=== PATIENT | female | born 1990 | race Caucasian/White ===

== ENCOUNTER → 2017-11-06 13:26 | Outpatient (CLI) | payer SELFPAY ==
[2017-11-06 17:00] LABS: Hematocrit 37.8 % (37-47); Hemoglobin 12.4 g/dl (12.0-15.0); Mean Corp Hgb Conc 32.8 g/gl (32-36); Mean Corpuscular Hgb 29.5 pg (27.0-32.0); Mean Corpuscular Volume 89.8 fL (81-99); Mean Platelet Vol. 10.5 fl (6.2-12.0); Platelet Count 276 K/mm3 (150-450); RBC Distribution Width CV 13.8 % (11.6-14.6); RBC Distribution Width SD 44.4 fl (35.1-43.9); Red Blood Count 4.21 M/mm3 (4.2-5.4); White Blood Count 5.5 K/mm3 (4.4-11.0)
[2017-11-06 17:14] LABS: Scan Indicated on CBC? Y/N NO
[2017-11-06 17:21] LABS: Erythrocyte Sedimentation Rate 6 mm/hr (0-20)
== END ==
PROVIDERS: Visit Provider Obstetrics & Gynecology
DX: N73.9 Female pelvic inflammatory disease, unspecified (principal)
CPT/HCPCS: 36415; 85027; 85652

== ENCOUNTER 2021-04-06 16:24 | Emergency (ER) | payer OTHER, SELFPAY ==
[2021-04-06 16:26] VITALS: BP 116/82; PULSE 142; RESP 16; TEMP 37.9; O2SAT 97; BMI 27.1
[2021-04-06 16:44] VITALS: PULSE 130
[2021-04-06 18:30] LABS: Bacteria 0 SEEN /hpf (None Seen); Mucous, Urine 0 SEEN /hpf (<or=2+)
[2021-04-06 18:32] LABS: Color, Urine Yellow (Yellow); Glucose, Dipstick Normal (Normal); Ketone-Dipstick Negative (Negative); Leukocyte Esterase-Dipstick 100 /ul (Negative); Nitrite-Dipstick Negative (Negative); Occult Blood-Urine 250 /ul (Negative); Protein-Dipstick 15 mg/dl (Negative); Urine Bilirubin Dipstick Negative (Negative); Urine Clarity Clear (Clear); Urine Urobilinogen Normal (Normal)
[2021-04-06 18:39] LABS: Red Blood Cells-Urine 25-50 SEEN /hpf (0-5); Squamous Epithelial Cells - UA 0-5 SEEN /hpf (5-10); White Blood Cells 5-10 SEEN /hpf (0-5)
[2021-04-06 18:55] LABS: Absolute Lymphocyte Count 1.04 X10^3/uL (0.83-4.51); Absolute Neutrophil Count 9.3 X10^3/uL (2.0-7.7); Basophil# 0.03 X10^3/uL; Basophil% 0.3 % (0-1); Eosinophil# 0.14 X10^3/uL; Eosinophils% 1.3 % (0-5); Hematocrit 42.8 % (37-47); Hemoglobin 13.8 g/dL (12.0-15.0); Lymphocyte # 1.04 X10^3/ul (0.83-4.51); Lymphocyte % 9.4 % (19-41); Mean Corp Hgb Conc 32.2 g/dL (32-36); Mean Corpuscular Hgb 30.6 pg (27.0-32.0); Mean Corpuscular Volume 94.9 fL (81-99); Mean Platelet Vol. 10.2 fl (6.2-12.0); Monocyte# 0.52 X10^3/uL; Monocyte% 4.7 % (0-10); NRBC Flagged by Analyzer 0 % (0-5); Neutrophil # 9.29 X10^3/uL (2.7-7.7); Neutrophil % 83.9 % (47-70); Platelet Count 306 K/mm3 (150-450); RBC Distribution Width CV 13.5 % (11.6-14.6); RBC Distribution Width SD 47.2 fl (35.1-43.9); Red Blood Count 4.51 M/mm3 (4.2-5.4); White Blood Count 11.1 K/mm3 (4.4-11.0)
[2021-04-06] MEDS: Acetaminophen 325 MG Tablet 650 MG PO (18:55)
[2021-04-06 18:58] VITALS: BP 109/77; PULSE 120; RESP 20; TEMP 37.3; O2SAT 98
--- NOTE | 2021-04-06 19:09 | EDS_ITS ---
HPI History of Present Illness Chief Complaint: Fever Narrative Narrative: Patient delivered a baby 2 days ago at home with heavy media operator. When she delivered, the heavy media operator noticed something that was protruding from her vaginal vault and the patient states she was told I do not know what that is but hopefully will go away. She states now she has developed a fever and it is foul-smelling and she fears there may be an infection there. She denies any urinary symptoms, her abdomen is sore but not getting worse, and she has developed a fever which is 100.3 here in the ER. She denies any Covid symptoms, vomiting, headaches, myalgias. PFSH PFSH Medical History Gestational diabetes Home Medications cephalexin 500 mg PO Q6H #40 cap 04/06/21 [Rx Last Taken Unknown] prednisone See Rx Instructions .ROUTE .COMPLEX 04/06/21 [History Last Taken Unknown] Allergy/AdvReac Type Severity Reaction Status Date / Time amoxicillin Allergy Mild Rash Verified 04/06/21 16:26 clindamycin Allergy Mild Diarrhea Verified 04/06/21 16:26 doxycycline Allergy Mild Rash Verified 04/06/21 16:26 metronidazole [From Flagyl] Allergy Mild Rash Verified 04/06/21 16:26 Family History (Updated 04/06/21 @ 21:[address] Юлия Newell MD) Other Hypertension Surgical History History of wisdom tooth extraction, class IV edentulism Social History (Updated 04/06/21 @ 21:[address] Юлия Newell MD) adopted: No household members: family housing: house number of children: 5 Smoking Status: Never smoker second hand exposure: No alcohol intake: never substance use type: does not use seatbelt use: always do you feel safe at home: Yes additional social history: [employer] ED Constitutional Constitutional ED: Reports fever(s); Denies chills Eyes Eyes: Reports systems reviewed and no addt'l complaints, except as documented ENT ENT ED: Denies rhinorrhea or sore throat Cardiovascular Cardiovascular: Denies chest pain or dyspnea Respiratory/Chest Respiratory/Chest: Denies chest congestion, cough or dyspnea Gastrointestinal Gastrointestinal: Reports as per HPI and abdominal pain; Denies constipation, fecal incontinence, nausea or vomiting Genitourinary Genitourinary ED: Reports as per HPI and other Details: no urinary retention. Vaginal bleeding scant, improved. ; Denies abdominal discomfort or urinary incontinence Musculoskeletal Musculoskeletal: Reports back pain; Denies neck pain Integumentary Denies rash or wounds Neurologic Neurologic: Denies headache(s), paresthesias or weakness EXAM Physical Exam Const Vital Signs: 04/06/21 16:26 04/06/21 16:44 04/06/21 18:58 Temperature 100.3 F H 99.2 F H Temperature Source Oral Oral Pulse Rate 142 H 130 H 120 H Respiratory Rate 16 20 H Respiratory Effort Normal Non-Labored Respiratory Pattern Normal Blood Pressure 116/82 H 109/77 Blood Pressure Mean 93 87 Pulse Ox 97 98 Oxygen Delivery Method Room Air Room Air Positive well nourished and well developed General Appearance ED: well developed and NAD HEENT Negative for trauma or tenderness Eyes PERRL and EOMs intact bilaterally Neck full ROM and supple Resp normal respiratory effort, normal air movement and no retractions Cardio regular rate, regular rhythm and no murmurs Rate: tachycardic GI normal to inspection, nondistended, normoactive bowel sounds and soft to palpation GI Narrative: Mild diffuse lower abdominal tenderness. Mildly distended, uterus palpable just below the umbilicus Narrative: On speculum exam, there is some scant amount of foul-smelling discharge deep within the vault, and possibly some mild vaginal prolapse, but nothing hanging out like the patient and suggested. Discomfort with speculum exam. No bleeding or blood. Back/Spine no CVA tenderness and normal to inspection Lumbar Spine / Lower Back: normal to inspection Extremity normal to inspection, full ROM and no pedal edema Neuro oriented x3 and no sensory deficits noted Sensorium / Orientation: alert Motor Exam: strength 5/5 throughout and clonus absent Deep Tendon Reflexes: Rt Patellar (L4): 2+, Lt Patellar (L4): 2+, Rt Ankle (S1): 2+ and Lt Ankle (S1): 2+ Deep Tendon Reflexes Back: Rt Patellar (L4): 2+, Lt Patellar (L4): 2+, Rt Ankle (S1): 2+ and Lt Ankle (S1): 2+ Plantar Reflex: Downgoing: bilateral Psych mental status grossly normal and thought process normal Skin no rashes or lesions noted and no wounds MDM MDM MDM Narrative Medical decision making narrative: Patient's fever treated, her urinalysis shows no obvious signs of infection of there were a few white blood cells and 100 leukocyte esterase but more reds and a few epithelials no bacteria. On pelvic exam, she does have foul-smelling scant amount of discharge and I do think this is probably the source but I do not see any major prolapse of any organs. I discussed with the block sawyer on-call Dr. Becki Newell, she recommends covering her for endometritis which can be done as an outpatient however the patient is allergic to all of the medications that we typically use for endometritis. I did give a dose of IV cefotetan 1 g which she recommended and we obtained a baseline white blood count 11.1. Patient is well-appearing I treated her fever, this made her heart rate come down. After further consultation and looking through records, and with the patient saying that cephalexin helped in the past, we will prescribe that and she will follow up. Lab Data Attestation: I reviewed the patient's lab results. Labs: Laboratory Results - last 24 hr 04/06/21 04/06/21 17:15 17:15 WBC 11.1 H RBC 4.51 Hgb 13.8 Hct 42.8 MCV 94.9 MCH 30.6 MCHC 32.2 RDW Std Deviation 47.2 H RDW Coeff of Jimmy 13.5 Plt Count 306 MPV 10.2 Immature Gran % (Auto) 0.400 Neut % (Auto) 83.9 H Lymph % (Auto) 9.4 L [place] % (Auto) 4.7 Eos % (Auto) 1.3 Baso % (Auto) 0.3 Absolute Neuts (auto) 9.3 H Absolute Lymphs (auto) 1.04 Nucleated RBC % 0 Urine Color Yellow Urine Clarity Clear Urine pH 8.0 Ur Specific [place] 1.010 Urine Protein 15 H Urine Glucose (UA) Normal Urine Ketones Negative Urine Occult Blood 250 H Urine Nitrite Negative Urine Bilirubin Negative Urine Urobilinogen Normal Ur Leukocyte Esterase 100 H Urine RBC 25-50 SEEN Urine WBC 5-10 SEEN Ur Squamous Epith Cells 0-5 SEEN Urine Bacteria 0 SEEN Urine Mucus 0 SEEN Discharge Plan Triage Chief Complaint: Fever Other Complaint: Female C/O ED Provider: Fritz Saleem Dx/Rx/DC Orders Clinical Impression: Acute endometritis Instructions: ED Endometritis, Obstetric Prescriptions: New cephalexin 500 mg capsule 500 mg PO Q6H Qty: 40 RF: 0 No Action prednisone 10 mg Tablets,Dose Pack See Rx Instructions .ROUTE .COMPLEX RF: 0 Primary Care Provider: Marcus Blue Referrals: Marcus Blue DO [Primary Care Provider] - Юлия Flower MD [STAFF PHYSICIAN] - 3-5 Days if not improving Disposition Disposition: Home, Self Care
--- NOTE | 2021-04-06 21:47 | CON.PCM.OB_ITS ---
Assessment & Plan (1) Acute endometritis: PLAN: Patient previously treated for endometritis with bloody diarrhea with Clindamycin and hives with Amoxicillin, Doxycycline and Flagyl after her third . She tolerated Keflex when prescribed for the same infection after her fourth with resolution of her symptoms. Will prescribe Keflex again. Pt to follow up in my office in 3 days if no improvement of symptoms in 48-72 hours. I advised her to have prophylactic antibiotics at the time of future deliveries. HPI Consult Data Date of Consult: 04/09/21 HPI Narrative HPI Narrative: MARILIN JUNE, is a 30 5 para 5-0-0-5 who presents on day #2 status post uncomplicated home vaginal delivery with complaint of fever and lower abdominal pain. Her was complicated by gestational diabetes with diet control. She is her infant and reports history of recurrent pelvic infection occurring within the first week following all her deliveries. She was most recently treated in 2019 with Keflex and resolution of her infection. [facility] Medical History Gestational diabetes Home Medications cephalexin 500 mg PO Q6H #40 cap 04/06/21 [Rx Last Taken Unknown] prednisone See Rx Instructions .ROUTE .COMPLEX 04/06/21 [History Last Taken Unknown] Allergy/AdvReac Type Severity Reaction Status Date / Time amoxicillin Allergy Mild Rash Verified 04/06/21 16:26 clindamycin Allergy Mild Diarrhea Verified 04/06/21 16:26 doxycycline Allergy Mild Rash Verified 04/06/21 16:26 metronidazole [From Flagyl] Allergy Mild Rash Verified 04/06/21 16:26 Family History (Updated 04/06/21 @ 21:[address] Юлия Newell MD) Other Hypertension Surgical History History of wisdom tooth extraction, class IV edentulism Social History (Updated 04/06/21 @ 21:[address] Юлия Newell MD) adopted: No household members: family housing: house number of children: 5 Smoking Status: Never smoker second hand exposure: No alcohol intake: never substance use type: does not use seatbelt use: always do you feel safe at home: Yes additional social history: Iron Vital Signs Vital Signs Vital Signs: 04/06/21 16:26 04/06/21 16:44 04/06/21 18:58 Temperature 100.3 F H 99.2 F H Temperature Source Oral Oral Pulse Rate 142 H 130 H 120 H Respiratory Rate 16 20 H Respiratory Effort Normal Non-Labored Respiratory Pattern Normal Blood Pressure 116/82 H 109/77 Blood Pressure Mean 93 87 Pulse Ox 97 98 Oxygen Delivery Method Room Air Room Air Weight Weight: 69.4 kg Body Mass Index (BMI) 27.1 ROS Constitutional Constitutional: Reports body ache(s) and fever(s); Denies chills, headache(s), night sweats or weakness Gastrointestinal Gastrointestinal: Reports abdominal pain Genitourinary Genitourinary: Reports urinary frequency Physical Exam Const alert, oriented x3 and no apparent distress General Appearance: cooperative and comfortable HEENT normocephalic Resp normal respiratory effort and normal air movement Cardio regular rhythm Rate: tachycardic GI normal to inspection, nondistended, normoactive bowel sounds, soft to palpation, non-tender and non-distended no CVA tenderness, appearance of the vagina normal, appearance of the cervix normal, adnexae non-tender and no adnexal masses Narrative: lower uterine segment tenderness, no bladder tenderness Cystocele Lab / Micro Data Result Diagrams: 04/06/21 17:15 Labs: Laboratory Results - last 24 hr 04/06/21 17:15: Urine Color Yellow, Urine Clarity Clear, Urine pH 8.0, Ur Specific [place] 1.010, Urine Protein 15 H, Urine Glucose (UA) Normal, Urine Ketones Negative, Urine Occult Blood 250 H, Urine Nitrite Negative, Urine Bilirubin Negative, Urine Urobilinogen Normal, Ur Leukocyte Esterase 100 H, Urine RBC 25-50 SEEN, Urine WBC 5-10 SEEN, Ur Squamous Epith Cells 0-5 SEEN, Urine Bacteria 0 SEEN, Urine Mucus 0 SEEN 04/06/21 17:15: WBC 11.1 H, RBC 4.51, Hgb 13.8, Hct 42.8, MCV 94.9, MCH 30.6, MCHC 32.2, RDW Std Deviation 47.2 H, RDW Coeff of Jimmy 13.5, Plt Count 306, MPV 10.2, Immature Gran % (Auto) 0.400, Neut % (Auto) 83.9 H, Lymph % (Auto) 9.4 L, [place] % (Auto) 4.7, Eos % (Auto) 1.3, Baso % (Auto) 0.3, Absolute Neuts (auto) 9.3 H, Absolute Lymphs (auto) 1.04, Nucleated RBC % 0
[2021-04-06 22:05] VITALS: BP 110/70; PULSE 68; RESP 12; TEMP 37.1; O2SAT 98
== END 2021-04-06 22:06 | disposition home or self-care (01) ==
PROVIDERS: Emergency Provider Emergency Medicine; PCP Physician Assistant
DX: N71.0 Acute inflammatory disease of uterus (principal); Z79.52 Long term (current) use of systemic steroids
CPT/HCPCS: 81001; 85025; 96365; 99284; J7050; A4216

== ENCOUNTER → 2021-12-03 | Outpatient (CLI) | payer SELFPAY ==
--- NOTE | 2021-12-03 18:15 | MRI_ITS ---
EXAM: MR HEAD WITHOUT INTRAVENOUS CONTRAST CLINICAL INDICATION: GAIT ABNORMALITY TECHNIQUE: Multiplanar and multisequence MR images of the brain were obtained without intravenous contrast. This report was created using [employer] (formerly [employer]) report generation technology. COMPARISON: None. FINDINGS: BRAIN AND EXTRA-AXIAL SPACES: Unremarkable. No intra- or extra-axial hemorrhage. No evidence of acute infarct. No intracranial mass or mass effect. There is preservation of the meade/white matter interface. Posterior fossa structures are unremarkable. Ventricles are appropriate for age. No hydrocephalus. Basal cisterns are patent. SELLA: Unremarkable. Normal sella turcica, pituitary gland, infundibular stalk, optic chiasm and hypothalamus. AUDITORY SYSTEM: Unremarkable. The internal auditory canals are patent. BONES/JOINTS: Unremarkable. No discrete lytic or blastic abnormalities. SINUSES: Unremarkable as visualized. Clear. MASTOID AIR CELLS: Unremarkable as visualized. Clear. ORBITS: Unremarkable as visualized. Both globes, extraocular muscles, optic nerves and retrobulbar fat appear unremarkable. VASCULATURE: Unremarkable as visualized. Normal flow voids in the major intracranial circulation. MRI/Brain without Contrast IMPRESSION: Negative MRI brain without intravenous contrast. Electronically Signed: Pierre Nolan MD at 19:19 EDT ,
== END | disposition home or self-care (01) ==
LOC: MRI 17:24
PROVIDERS: PCP Physician Assistant
DX: R26.89 Other abnormalities of gait and mobility (principal); R56.9 Unspecified convulsions; R42 Dizziness and giddiness
CPT/HCPCS: 70551